=== PATIENT | male | born 1935 | race African-American/Black ===

== ENCOUNTER 2022-11-08 21:03 | Inpatient (IN) | payer MEDICARE, MEDICAID ==
[~2022-11-08] VITALS: Ht 165.1 cm; Wt 49.9 kg
[~2022-11-08 21:03] MED LIST: ATOR20TA PO; COR12 PO; LISI40TA13 PO
[2022-11-08] MEDS ORDERED: AZITHROMYCIN 500MG/250ML 250 ML IV ONE (21:45)
[2022-11-08] MEDS ORDERED: CEFTRIAXONE 1GM PREMIX 50 ML IV ONE (21:45)
[2022-11-08] MEDS ORDERED: SODIUM CHLORIDE 0.9% 1000ML BAG (SEPSIS BOLUS) IV ONE (21:45)
[2022-11-08 22:45] LABS: HEMATOCRIT. 29.2 % (42.0-52.0); HEMOGLOBIN. 9.4 g/dL (14.0-18.0); MEAN CORPUSCULAR HEMOGLOBIN 33.5 pg (28.0-32.0); MEAN CORPUSCULAR VOLUME 104.6 fL (80.0-94.0); MEAN PLATELET VOLUME 9.2 fl (7.4-10.4); PLATELET 114 x1000/uL (130-400); RED CELL DISTRIBUTION WIDTH 17.7 % (11.6-14.6)
[2022-11-08 22:52] LABS: CHLORIDE 105 mEq/L (98-107)
[2022-11-08 23:09] LABS: PLATELET ESTIMATE DECREASED
[2022-11-09] MEDS ORDERED: LEVOFLOXACIN 750MG PREMIX 150 ML IV ONE (00:15)
[2022-11-09] MEDS ORDERED: LEVOFLOXACIN 750MG PREMIX 150 ML IV NR (02:00)
[2022-11-09] MEDS ORDERED: DEXT 5%/0.45% NACL 1000ML 1,000 ML IV ONE (02:30)
[2022-11-09] MEDS ORDERED: ACETAMINOPHEN 325MG TABLET PO PRN ×2 (04:15)
[2022-11-09] MEDS ORDERED: ONDANSETRON HCL 4MG/2ML INJ IV PRN (04:15)
[2022-11-09] MEDS ORDERED: MAGNESIUM/ALUMINUM HYDROXIDE/SIMETHICONE 30ML UDC PO PRN (04:15)
[2022-11-09] MEDS ORDERED: IPRATROPIUM/ALBUTEROL 0.5-3(2.5)MG/3ML NEB HHN PRN (04:15)
[2022-11-09] MEDS ORDERED: CLONIDINE 0.1MG TABLET PO PRN (04:15)
[2022-11-09 04:19] LABS: INR 1.1; PROTHROMBIN TIME 11.9 sec (9.6-11.0)
[2022-11-09] MEDS ORDERED: METHYLPREDNISOLONE SOD SUCC 125 MG/2 ML VIAL IV NR (04:30)
[2022-11-09] MEDS ORDERED: GUAIFENESIN 200MG TABLET PO PRN (04:45)
[2022-11-09] MEDS ORDERED: CEFTRIAXONE 1GM PREMIX 50 ML IV SCH (05:30)
[2022-11-09] MEDS ORDERED: AZITHROMYCIN 500 MG in DEXT 5% WATER 250 ML IV SCH (05:30)
[2022-11-09 06:10] LABS: CREATINE KINASE 80 IU/L (39-308); CREATINE KINASE MB FRACTION < 1.0 ng/mL (0.5-3.6); PHOSPHORUS 2.4 mg/dL (2.5-4.9); TOTAL IRON BINDING CAPACITY 265 ug/dL (250-450)
[2022-11-09 06:47] LABS: FOLIC ACID (FOLATE) SERUM >20 ng/mL ng/mL (>5.38); VITAMIN B12 SERUM 1852 pg/mL (211-911)
[2022-11-09 06:54] LABS: PROSTRATE SPECIFIC AG TOTAL 6.14 ng/mL (0.0-4.0)
[2022-11-09 07:14] LABS: FERRITIN 1495 ng/mL (22-322)
[2022-11-09 08:30] VITALS: BP 114/60
[2022-11-09] MEDS ORDERED: CARVEDILOL 12.5MG TABLET PO SCH (09:00)
[2022-11-09] MEDS: PANTOPRAZOLE SODIUM 40 MG/VIAL IV SCH (10:07)
[2022-11-09] MEDS: MIDODRINE HCL 5MG TABLET PO SCH ×3 (10:09→17:55)
[2022-11-09] MEDS ORDERED: CARV6.2548 PO (11:42)
[2022-11-09] MEDS ORDERED: MIRT-90 PO (11:47)
[2022-11-09] MEDS ORDERED: OLOD4MIS2 IH (11:47)
[2022-11-09] MEDS ORDERED: OMEP20CA14 PO (11:47)
[2022-11-09] MEDS ORDERED: GUAI400T93 PO (11:47)
[2022-11-09] MEDS ORDERED: ALBU18HF2 IH (11:47)
[2022-11-09] MEDS: METHYLPREDNISOLONE SOD SUCC 40 MG/ML VIAL IV SCH ×2 (11:52→17:55)
[2022-11-09 12:12] VITALS: BP 106/55
[2022-11-09] MEDS: SODIUM CHLORIDE 3% FOR INH 4ML UD NEB INH SCH (13:04)
[2022-11-09] MEDS: BUDESONIDE 0.5MG/2ML NEB HHN SCH (13:04)
[2022-11-09] MEDS: IPRATROPIUM/ALBUTEROL 0.5-3(2.5)MG/3ML NEB HHN PRN ×2 (13:05→16:31)
[2022-11-09 13:22] VITALS: BP 114/60
[2022-11-09 15:27] VITALS: BP 99/48
[2022-11-09] MEDS: ACETYLCYSTEINE 100MG/ML 10% VIAL 4ML INH SCH (16:30)
[2022-11-09 20:00] VITALS: BP 103/51
[2022-11-09] MEDS: MIRTAZAPINE 15MG TABLET PO SCH (20:54)
[2022-11-09] MEDS: ATORVASTATIN CALCIUM 40MG TABLET PO SCH (20:54)
[2022-11-09] MEDS ORDERED: ENOXAPARIN 30MG/0.3ML SYR SUBCUT SCH (21:00)
[2022-11-09] MEDS: CEFTRIAXONE 1,000 MG in DEXTROSE 5% WATER 50 ML IV SCH (22:18)
[2022-11-09] MEDS: AZITHROMYCIN 500MG in DEXTROSE 5% WATER 250ML IV SCH (23:06)
[2022-11-10] VITALS (10 sets, daily range): BP systolic 101–115; BP diastolic 50–61
[2022-11-10] MEDS: BUDESONIDE 0.5MG/2ML NEB HHN SCH ×3 (00:41→20:47)
[2022-11-10] MEDS: ACETYLCYSTEINE 100MG/ML 10% VIAL 4ML INH SCH ×3 (00:41→17:39)
[2022-11-10] MEDS: IPRATROPIUM/ALBUTEROL 0.5-3(2.5)MG/3ML NEB HHN PRN ×4 (00:42→17:41)
[2022-11-10] MEDS: METHYLPREDNISOLONE SOD SUCC 40 MG/ML VIAL IV SCH ×3 (01:02→17:34)
[2022-11-10] MEDS: PANTOPRAZOLE SODIUM 40 MG/VIAL IV SCH (08:20)
[2022-11-10] MEDS: MIDODRINE HCL 5MG TABLET PO SCH ×3 (08:20→17:34)
[2022-11-10] MEDS: SODIUM CHLORIDE 3% FOR INH 4ML UD NEB INH SCH (13:11)
[2022-11-10] MEDS: ATORVASTATIN CALCIUM 40MG TABLET PO SCH (20:30)
[2022-11-10] MEDS: MIRTAZAPINE 15MG TABLET PO SCH (20:30)
[2022-11-10] MEDS: CEFTRIAXONE 1,000 MG in DEXTROSE 5% WATER 50 ML IV SCH (22:14)
[2022-11-10] MEDS: AZITHROMYCIN 500MG in DEXTROSE 5% WATER 250ML IV SCH (23:26)
[2022-11-11] VITALS: BP 109/57
[2022-11-11] MEDS: IPRATROPIUM/ALBUTEROL 0.5-3(2.5)MG/3ML NEB HHN PRN ×4 (00:18→21:55)
[2022-11-11] MEDS: ACETYLCYSTEINE 100MG/ML 10% VIAL 4ML INH SCH ×3 (00:18→16:50)
[2022-11-11] MEDS: METHYLPREDNISOLONE SOD SUCC 40 MG/ML VIAL IV SCH ×3 (00:42→16:34)
[2022-11-11 01:14] LABS: HEPATITIS B SURFACE ANTIGEN NEGATIVE
[2022-11-11 04:00] VITALS: BP 112/56
[2022-11-11 08:00] VITALS: BP 114/54
[2022-11-11] MEDS: BUDESONIDE 0.5MG/2ML NEB HHN SCH ×2 (08:37→21:54)
[2022-11-11] MEDS: PANTOPRAZOLE SODIUM 40 MG/VIAL IV SCH (09:31)
[2022-11-11] MEDS: MIDODRINE HCL 5MG TABLET PO SCH ×3 (09:31→16:34)
[2022-11-11 12:00] VITALS: BP 129/53
[2022-11-11 16:00] VITALS: BP 100/70
[2022-11-11 20:00] VITALS: BP 119/51
[2022-11-11] MEDS: MIRTAZAPINE 15MG TABLET PO SCH (20:47)
[2022-11-11] MEDS: ATORVASTATIN CALCIUM 40MG TABLET PO SCH (20:47)
[2022-11-11] MEDS: CEFTRIAXONE 1,000 MG in DEXTROSE 5% WATER 50 ML IV SCH (22:09)
[2022-11-11] MEDS: AZITHROMYCIN 500MG in DEXTROSE 5% WATER 250ML IV SCH (23:17)
[2022-11-12] VITALS (9 sets, daily range): BP systolic 104–142; BP diastolic 54–100
[2022-11-12] MEDS: METHYLPREDNISOLONE SOD SUCC 40 MG/ML VIAL IV SCH ×2 (01:05→08:49)
[2022-11-12] MEDS: ACETYLCYSTEINE 100MG/ML 10% VIAL 4ML INH SCH (02:05)
[2022-11-12] MEDS: IPRATROPIUM/ALBUTEROL 0.5-3(2.5)MG/3ML NEB HHN PRN (02:05)
[2022-11-12] MEDS: SODIUM CHLORIDE 3% FOR INH 4ML UD NEB INH SCH (08:27)
[2022-11-12] MEDS: PANTOPRAZOLE SODIUM 40 MG/VIAL IV SCH (08:49)
[2022-11-12] MEDS: MIDODRINE HCL 5MG TABLET PO SCH (08:53)
== END 2022-11-12 16:35 | disposition home health service (06) | DRG 871 ==
LOC: ER 21:03 → 7WST 11-09 01:18 → EDBEDREQ 11-09 01:23 → EDBEDREQDT 11-09 01:23 → EDBEDREQTM 11-09 01:23 → ER 11-09 08:24
PROVIDERS: ADMIT Hospitalist; ATTEND Hospitalist
PROC: 5A1D70Z Performance of Urinary Filtration, Intermittent, Less than 6 Hours Per Day (ICD-10-PCS; principal; 2022-11-12)
DX: A41.9 Sepsis, unspecified organism (principal); E43 Unspecified severe protein-calorie malnutrition; G92.8 Other toxic encephalopathy; J18.9 Pneumonia, unspecified organism; J86.9 Pyothorax without fistula; J96.20 Acute and chronic respiratory failure, unspecified whether with hypoxia or hypercapnia; N18.6 End stage renal disease; I50.43 Acute on chronic combined systolic (congestive) and diastolic (congestive) heart failure; E87.20 Acidosis, unspecified; I13.2 Hypertensive heart and chronic kidney disease with heart failure and with stage 5 chronic kidney disease, or end stage renal disease; I48.92 Unspecified atrial flutter; Z68.1 Body mass index [BMI] 19.9 or less, adult; Z20.822 Contact with and (suspected) exposure to COVID-19; D53.9 Nutritional anemia, unspecified; D63.8 Anemia in other chronic diseases classified elsewhere; D69.6 Thrombocytopenia, unspecified; J43.9 Emphysema, unspecified; Z87.01 Personal history of pneumonia (recurrent); Z99.2 Dependence on renal dialysis; Z82.49 Family history of ischemic heart disease and other diseases of the circulatory system; Z79.899 Other long term (current) drug therapy
CPT/HCPCS: 36415; 71045; 76604; 80053; 82270; 82550; 82553; 82607; 82728; 82746; 83036; 83540; 83550; 83605; 83735; 84100; 84145; 84153; 84484; 85025; 85379; 86705; 86709; 86803; 87340; 87426; 90935; 93005; 93306; 93880; 94640; 97162; 99291; C9113; C9803; J0456; J0696; J1956; J2920; J2930; J7030; J7060; J7608; J7626; G0103